=== PATIENT | female | born 1970 | race Caucasian/White ===

== ENCOUNTER 2019-02-02 07:33 | Outpatient (CLI) | payer OTHER | END 2019-02-02 07:43 | disposition home or self-care (01) | LOC: SONOGRAMA 07:33 → MAMO-SONO 07:45 | DX: R10.32 Left lower quadrant pain (principal) ==

== ENCOUNTER 2022-05-29 07:15 | Outpatient (CLI) | payer OTHER | END 2022-05-29 07:23 | disposition home or self-care (01) | LOC: SONOGRAMA 07:15 | PROVIDERS: ATTEND Internal Medicine Hepatology | DX: R10.11 Right upper quadrant pain (principal) ==